=== PATIENT | male | born 1970 | race African-American/Black ===

== ENCOUNTER 2021-01-03 13:39 | Inpatient (IN) | payer SELFPAY ==
[~2021-01-03] VITALS: Ht 182.9 cm; Wt 129.7 kg
[2021-01-03 14:31] LABS: BASOPHILS % 0.7 % (0.0-1.0); EOSINOPHILS # (AUTO) 0.1 (0.0-0.4); EOSINOPHILS % 1.6 % (0.0-6.0); HEMATOCRIT 45.5 % (38.2-49.6); HEMOGLOBIN 15.3 g/dL (14.0-18.0); LYMPHOCYTES # (AUTO) 2.2 (1.0-3.2); LYMPHOCYTES % 39.2 % (18.0-39.1); MEAN CORPUSCULAR HEMOGLOBIN 28.7 pg (28-32); MEAN CORPUSCULAR HGB CONC 33.6 g/dL (31-35); MEAN CORPUSCULAR VOLUME 85.2 fL (81-99); MONOCYTES # (AUTO) 0.6 (0.2-0.8); MONOCYTES % 10.2 % (4.4-11.3); NEUTROPHILS # (AUTO) 2.6 (2.1-6.9); NEUTROPHILS % 47.8 % (38.7-80.0); PLATELET COUNT 239 x10e3/uL (140-360); RED BLOOD COUNT 5.34 x10e6/uL (4.3-5.7); RED CELL DISTRIBUTION WIDTH 12.9 % (11.7-14.4)
[2021-01-03 14:50] LABS: ALANINE AMINOTRANSFERASE 66 IU/L (0-55); ALBUMIN 4.2 g/dL (3.5-5.0); ALKALINE PHOSPHATASE 38 IU/L (40-150); ANION GAP 15.7 mmol/L (8-16); BLOOD UREA NITROGEN 11 mg/dL (7-26); BUN/CREATININE RATIO 10 (6-25); CALCIUM 9.1 mg/dL (8.4-10.2); CARBON DIOXIDE 27 mmol/L (22-29); CHLORIDE 101 mmol/L (98-107); CREATININE, SERUM 1.15 mg/dL (0.72-1.25); EST GLOMERULAR FILTRATION RATE > 60 ML/MIN (60-); GLUCOSE 92 mg/dL (74-118); POTASSIUM 3.7 mmol/L (3.5-5.1); SODIUM 140 mmol/L (136-145)
[2021-01-03] MEDS ORDERED: FUROSEMIDE INJ 10 MG/ML 4 ML VIAL IV ONE (16:45)
[2021-01-03] MEDS ORDERED: MELOXICAM15 MG PO (17:17)
[2021-01-03] MEDS ORDERED: METFORMIN HCL500 MG PO (17:17)
[2021-01-03] MEDS ORDERED: AMLODIPINE BESY10 MG PO (17:17)
[2021-01-03] MEDS ORDERED: HYDROCHLOROTHIA25 MG PO (17:17)
[2021-01-03] MEDS ORDERED: LEXAPRO10 MG PO (17:17)
[2021-01-03] MEDS ORDERED: LOSARTAN POTAS100 MG PO (17:17)
[2021-01-03] MEDS ORDERED: CLONIDINE HCL0.1 MG PO (17:17)
[2021-01-03] MEDS ORDERED: PANTOPRAZOLE SO40 MG PO (17:17)
[2021-01-03 17:48] VITALS: BP 117/82
[2021-01-03 20:00] VITALS: BP 13/59
[2021-01-03 20:34] VITALS: BP 186/115
[2021-01-03] MEDS ORDERED: CLONIDINE HCL 0.1 MG TAB PO SCH (21:54)
[2021-01-04] VITALS (8 sets, daily range): BP systolic 132–164; BP diastolic 81–105
[2021-01-04 00:28] LABS: CREATINE KINASE MB 2.8 ng/mL (0-5.0)
[2021-01-04 06:07] LABS: BASOPHILS % 0.8 % (0.0-1.0); EOSINOPHILS # (AUTO) 0.1 (0.0-0.4); EOSINOPHILS % 1.6 % (0.0-6.0); HEMATOCRIT 43.9 % (38.2-49.6); HEMOGLOBIN 14.7 g/dL (14.0-18.0); LYMPHOCYTES # (AUTO) 2.2 (1.0-3.2); LYMPHOCYTES % 43.7 % (18.0-39.1); MEAN CORPUSCULAR HEMOGLOBIN 28.2 pg (28-32); MEAN CORPUSCULAR HGB CONC 33.5 g/dL (31-35); MEAN CORPUSCULAR VOLUME 84.1 fL (81-99); MONOCYTES # (AUTO) 0.5 (0.2-0.8); MONOCYTES % 9.1 % (4.4-11.3); NEUTROPHILS # (AUTO) 2.3 (2.1-6.9); NEUTROPHILS % 44.6 % (38.7-80.0); PLATELET COUNT 236 x10e3/uL (140-360); RED BLOOD COUNT 5.22 x10e6/uL (4.3-5.7); RED CELL DISTRIBUTION WIDTH 12.8 % (11.7-14.4)
[2021-01-04 06:25] LABS: ANION GAP 15.5 mmol/L (8-16); BLOOD UREA NITROGEN 14 mg/dL (7-26); BUN/CREATININE RATIO 12 (6-25); CALCIUM 9.2 mg/dL (8.4-10.2); CARBON DIOXIDE 28 mmol/L (22-29); CHLORIDE 100 mmol/L (98-107); CREATININE, SERUM 1.13 mg/dL (0.72-1.25); EST GLOMERULAR FILTRATION RATE > 60 ML/MIN (60-); GLUCOSE 116 mg/dL (74-118); POTASSIUM 3.5 mmol/L (3.5-5.1); SODIUM 140 mmol/L (136-145)
[2021-01-04 06:49] LABS: CREATINE KINASE MB 4.9 ng/mL (0-5.0)
[2021-01-04] MEDS ORDERED: DEXTROSE 50% SYRINGE 50 ML IV PRN (08:00)
[2021-01-04] MEDS ORDERED: HYDRALAZINE HCL 20 MG/ML VIAL IV PRN (08:15)
[2021-01-04] MEDS: CARVEDILOL 12.5 MG TAB PO SCH ×2 (08:34→16:54)
[2021-01-04] MEDS: ESCITALOPRAM OXALATE 10 MG TAB PO SCH (08:35)
[2021-01-04] MEDS: LOSARTAN POTASSIUM 100 MG TAB PO SCH (08:35)
[2021-01-04] MEDS: PANTOPRAZOLE SOD 40 MG TABEC PO SCH (08:35)
[2021-01-04] MEDS: AMLODIPINE BESYLATE 10 MG TAB PO SCH (08:35)
[2021-01-04 08:48] LABS: CHOL/HDL RATIO 4.6 (3.9-4.7)
[2021-01-04] MEDS ORDERED: FUROSEMIDE INJ 10 MG/ML 4 ML VIAL IV SCH (09:00)
[2021-01-04] MEDS ORDERED: HYDROCHLOROTHIAZIDE 25 MG TAB PO SCH (09:00)
[2021-01-04] MEDS ORDERED: METFORMIN HCL 500 MG TAB PO SCH (09:00)
[2021-01-04] MEDS ORDERED: TRAMADOL HCL 50 MG TAB PO PRN (11:00)
[2021-01-04] MEDS ORDERED: MELATONIN 5 MG TABLET PO PRN (11:00)
[2021-01-04] MEDS ORDERED: ONDANSETRON HCL INJ 2MG/ML 2ML 2 MG/ML VIAL IV PRN (11:00)
[2021-01-04] MEDS ORDERED: MORPHINE SULFATE INJ 2 MG/ML SYR IV PRN (11:00)
[2021-01-04] MEDS: INSULIN REGULAR, HUMAN 100 UNIT/1 ML 3ML VIAL SQ SCH ×3 (11:30→20:56)
[2021-01-04] MEDS ORDERED: INSULIN REGULAR, HUMAN 100 UNIT/1 ML 3ML VIAL SQ SCH (11:30)
[2021-01-04] MEDS ORDERED: MAGNESIUM HYDROXIDE 30 ML UDC PO PRN (16:45)
[2021-01-04] MEDS: ENOXAPARIN SOD INJ 40 MG/0.4 ML SYR SC SCH (16:54)
[2021-01-04] MEDS: LACTULOSE SYRUP 20 GM/30 ML UDC PO PRN (16:54)
[2021-01-04] MEDS: FUROSEMIDE INJ 10 MG/ML 4 ML VIAL IV SCH (20:36)
[2021-01-04] MEDS: ATORVASTATIN 20 MG TAB PO SCH (20:36)
[2021-01-05] VITALS (8 sets, daily range): BP systolic 128–155; BP diastolic 83–108
[2021-01-05 05:16] LABS: BASOPHILS % 0.8 % (0.0-1.0); EOSINOPHILS # (AUTO) 0.1 (0.0-0.4); EOSINOPHILS % 2.5 % (0.0-6.0); HEMATOCRIT 45.2 % (38.2-49.6); HEMOGLOBIN 15.2 g/dL (14.0-18.0); LYMPHOCYTES # (AUTO) 2.1 (1.0-3.2); LYMPHOCYTES % 44.5 % (18.0-39.1); MEAN CORPUSCULAR HEMOGLOBIN 28.3 pg (28-32); MEAN CORPUSCULAR HGB CONC 33.6 g/dL (31-35); MEAN CORPUSCULAR VOLUME 84.2 fL (81-99); MONOCYTES # (AUTO) 0.4 (0.2-0.8); MONOCYTES % 8.5 % (4.4-11.3); NEUTROPHILS % 43.3 % (38.7-80.0); PLATELET COUNT 234 x10e3/uL (140-360); RED BLOOD COUNT 5.37 x10e6/uL (4.3-5.7); RED CELL DISTRIBUTION WIDTH 12.8 % (11.7-14.4)
[2021-01-05 05:59] LABS: ALANINE AMINOTRANSFERASE 59 IU/L (0-55); ALBUMIN 3.9 g/dL (3.5-5.0); ALKALINE PHOSPHATASE 38 IU/L (40-150); ANION GAP 14.4 mmol/L (8-16); BLOOD UREA NITROGEN 17 mg/dL (7-26); BUN/CREATININE RATIO 14 (6-25); CALCIUM 9.2 mg/dL (8.4-10.2); CARBON DIOXIDE 30 mmol/L (22-29); CHLORIDE 98 mmol/L (98-107); CREATININE, SERUM 1.25 mg/dL (0.72-1.25); EST GLOMERULAR FILTRATION RATE > 60 ML/MIN (60-); GLUCOSE 127 mg/dL (74-118); POTASSIUM 3.4 mmol/L (3.5-5.1); SODIUM 139 mmol/L (136-145)
[2021-01-05] MEDS: INSULIN REGULAR, HUMAN 100 UNIT/1 ML 3ML VIAL SQ SCH ×4 (07:30→20:50)
[2021-01-05] MEDS: PANTOPRAZOLE SOD 40 MG TABEC PO SCH (08:40)
[2021-01-05] MEDS: CARVEDILOL 12.5 MG TAB PO SCH ×2 (08:41→17:40)
[2021-01-05] MEDS: ASPIRIN 81 MG CHEW TAB PO SCH (08:41)
[2021-01-05] MEDS: FUROSEMIDE INJ 10 MG/ML 4 ML VIAL IV SCH (08:41)
[2021-01-05] MEDS: ESCITALOPRAM OXALATE 10 MG TAB PO SCH (08:42)
[2021-01-05] MEDS: LOSARTAN POTASSIUM 100 MG TAB PO SCH (08:42)
[2021-01-05] MEDS: AMLODIPINE BESYLATE 10 MG TAB PO SCH (08:43)
[2021-01-05] MEDS ORDERED: POTASSIUM CHLORIDE 10MEQ EA PO ONE (10:10)
[2021-01-05] MEDS: LACTULOSE SYRUP 20 GM/30 ML UDC PO PRN (10:16)
[2021-01-05] MEDS: HYDROCHLOROTHIAZIDE 25 MG TAB PO SCH (12:09)
[2021-01-05] MEDS: LORATADINE 10 MG TAB PO SCH (12:09)
[2021-01-05] MEDS: ENOXAPARIN SOD INJ 40 MG/0.4 ML SYR SC SCH (17:40)
[2021-01-05] MEDS ORDERED: ACETAMINOPHEN 325 MG TAB PO PRN (20:15)
[2021-01-05] MEDS: ATORVASTATIN 20 MG TAB PO SCH (21:09)
[2021-01-06] VITALS: BP 117/84
[2021-01-06 04:00] VITALS: BP 141/89
[2021-01-06 05:34] LABS: BASOPHILS # (AUTO) 0.1 (0.0-0.1); EOSINOPHILS # (AUTO) 0.1 (0.0-0.4); EOSINOPHILS % 1.8 % (0.0-6.0); HEMATOCRIT 45.3 % (38.2-49.6); HEMOGLOBIN 15.1 g/dL (14.0-18.0); LYMPHOCYTES % 37.9 % (18.0-39.1); MEAN CORPUSCULAR HEMOGLOBIN 28.2 pg (28-32); MEAN CORPUSCULAR HGB CONC 33.3 g/dL (31-35); MEAN CORPUSCULAR VOLUME 84.7 fL (81-99); MONOCYTES # (AUTO) 0.6 (0.2-0.8); MONOCYTES % 12.3 % (4.4-11.3); NEUTROPHILS # (AUTO) 2.4 (2.1-6.9); NEUTROPHILS % 46.8 % (38.7-80.0); PLATELET COUNT 248 x10e3/uL (140-360); RED BLOOD COUNT 5.35 x10e6/uL (4.3-5.7); RED CELL DISTRIBUTION WIDTH 12.8 % (11.7-14.4)
[2021-01-06 05:57] LABS: ANION GAP 14.4 mmol/L (8-16); BLOOD UREA NITROGEN 20 mg/dL (7-26); BUN/CREATININE RATIO 16 (6-25); CALCIUM 9.6 mg/dL (8.4-10.2); CARBON DIOXIDE 31 mmol/L (22-29); CHLORIDE 96 mmol/L (98-107); CREATININE, SERUM 1.29 mg/dL (0.72-1.25); EST GLOMERULAR FILTRATION RATE > 60 ML/MIN (60-); GLUCOSE 121 mg/dL (74-118); MAGNESIUM 2.2 MG/DL (1.3-2.1); POTASSIUM 3.4 mmol/L (3.5-5.1); SODIUM 138 mmol/L (136-145)
[2021-01-06] MEDS: INSULIN REGULAR, HUMAN 100 UNIT/1 ML 3ML VIAL SQ SCH (07:30)
[2021-01-06 08:52] VITALS: BP 141/89
[2021-01-06 09:20] VITALS: BP 138/80
[2021-01-06] MEDS: HYDROCHLOROTHIAZIDE 25 MG TAB PO SCH (09:26)
[2021-01-06] MEDS: PANTOPRAZOLE SOD 40 MG TABEC PO SCH (09:26)
[2021-01-06] MEDS: ASPIRIN 81 MG CHEW TAB PO SCH (09:26)
[2021-01-06] MEDS: LORATADINE 10 MG TAB PO SCH (09:26)
[2021-01-06] MEDS: LOSARTAN POTASSIUM 100 MG TAB PO SCH (09:27)
[2021-01-06] MEDS: AMLODIPINE BESYLATE 10 MG TAB PO SCH (09:27)
[2021-01-06] MEDS: ESCITALOPRAM OXALATE 10 MG TAB PO SCH (09:27)
[2021-01-06] MEDS: CARVEDILOL 12.5 MG TAB PO SCH (09:27)
[2021-01-06] MEDS ORDERED: COREG12.5 MG PO (09:59)
[2021-01-06] MEDS ORDERED: ASPIRIN CHEW81 MG PO (09:59)
[2021-01-06] MEDS ORDERED: ESIDRIX25 MG PO (09:59)
[2021-01-06] MEDS ORDERED: POTASSIUM CHLORIDE 10MEQ EA PO ONE (11:30)
== END 2021-01-06 11:38 | disposition home or self-care (01) | DRG 293 ==
LOC: ER 14:16 → ERHOLD 16:31 → MED/SURG3 20:04 → OBSVTOIN 01-04 16:13
PROVIDERS: ADMIT Internal Medicine; ATTEND Internal Medicine
DX: I11.0 Hypertensive heart disease with heart failure (principal); I50.23 Acute on chronic systolic (congestive) heart failure; E11.9 Type 2 diabetes mellitus without complications; E66.01 Morbid (severe) obesity due to excess calories; Z68.38 Body mass index [BMI] 38.0-38.9, adult; G47.33 Obstructive sleep apnea (adult) (pediatric); I16.0 Hypertensive urgency; Z83.3 Family history of diabetes mellitus; Z20.822 Contact with and (suspected) exposure to COVID-19; E78.5 Hyperlipidemia, unspecified
CPT/HCPCS: 36415; 71045; 80048; 80053; 80061; 82550; 82553; 82948; 83036; 83735; 83880; 84484; 85025; 93005; 93306; 99284; G0378; J1650; J1817; J1940; U0002